=== PATIENT | female | born 1995 | race Caucasian/White ===

== ENCOUNTER 2019-08-17 08:30 | Outpatient (CLI) | payer OTHER ==
[2019-08-17 10:12] LABS: HGB - HEMOGLOBIN 10.6 g/dL (12.0-16.0); MEAN CORPUSCULAR HEMOGLOBIN 29.4 pg (27.0-31.0); MEAN CORPUSCULAR HGB CONC 31.5 g/dL (32.0-36.0); MEAN CORPUSCULAR VOLUME 93.3 fL (81.0-99.0); MEAN PLATELET VOLUME 10.3 fL (7.9-10.8); RED BLOOD COUNT 3.6 10^6/uL (4.20-5.40); WHITE BLOOD COUNT 10.6 x10^3/uL (4.8-10.8)
== END 2019-08-17 08:31 | disposition home or self-care (01) ==
LOC: LAB 08:30
PROVIDERS: ATTEND Advanced Practice Midwife
DX: Z34.90 Encounter for supervision of normal pregnancy, unspecified, unspecified trimester (principal)
CPT/HCPCS: 36415; 82950; 85027

== ENCOUNTER 2019-10-15 07:00 | Outpatient (CLI) | payer OTHER ==
[2019-10-15 20:02] LABS: TRICHOMONAS VAGINALIS DNA NEGATIVE (NEGATIVE)
== END 2019-10-15 23:59 | disposition home or self-care (01) ==
LOC: LAB.R 07:00
PROVIDERS: ATTEND Advanced Practice Midwife
DX: Z36.85 Encounter for antenatal screening for Streptococcus B (principal); Z11.3 Encounter for screening for infections with a predominantly sexual mode of transmission
CPT/HCPCS: 87491; 87591; 87661; 87797

== ENCOUNTER 2019-10-31 07:51 | Inpatient (IN) | payer OTHER ==
[2019-10-31 09:48] LABS: BASOPHILS % (AUTO) 0.3 %; EOSINOPHILS % (AUTO) 0.2 %; HGB - HEMOGLOBIN 11.1 g/dL (12.0-16.0); LYMPHOCYTES # (AUTO) 1.4 10^3/uL (1.5-3.5); LYMPHOCYTES % (AUTO) 11.8 %; MEAN CORPUSCULAR HEMOGLOBIN 27.2 pg (27.0-31.0); MEAN CORPUSCULAR HGB CONC 31.4 g/dL (32.0-36.0); MEAN CORPUSCULAR VOLUME 86.5 fL (81.0-99.0); MEAN PLATELET VOLUME 12.4 fL (7.9-10.8); MONOCYTES # (AUTO) 0.4 10^3/uL (0.0-1.0); MONOCYTES % (AUTO) 3.5 %; NEUTROPHILS # (AUTO) 10.2 10^3/uL (1.5-6.6); NEUTROPHILS % (AUTO) 83.4 %; PLT - PLATELET COUNT 197 10^3/uL (130-450); RED BLOOD COUNT 4.08 10^6/uL (4.20-5.40); RED CELL DISTRIBUTION WIDTH 15.5 % (12.0-15.0); WHITE BLOOD COUNT 12.2 x10^3/uL (4.8-10.8)
[2019-10-31 09:54] LABS: URIC ACID 5.9 mg/dL (2.6-7.2)
[2019-10-31 09:56] LABS: CREATININE,URINE 274.8 mg/dL; PROTEIN/CREATININE RATIO,URINE 0.1 (<=0.2)
[2019-10-31 10:00] LABS: BILIRUBIN,URINE NEGATIVE (NEGATIVE); GLUCOSE, URINE (UA) NEGATIVE (NEGATIVE); KETONES,URINE (UA) NEGATIVE (NEGATIVE); LEUKOCYTE ESTERASE, URINE NEGATIVE (NEGATIVE); NITRITE,URINE NEGATIVE (NEGATIVE); OCCULT BLOOD,URINE NEGATIVE (NEGATIVE); PROTEIN,URINE NEGATIVE (NEGATIVE); UROBILINOGEN,URINE 0.2 (NORMAL) E.U./dL (NORMAL)
[2019-10-31 10:05] LABS: ALBUMIN 3.6 g/dL (3.2-5.5); BILIRUBIN,TOTAL 0.7 mg/dL (0.2-1.0); CALCIUM 9.4 mg/dL (8.5-10.3); CREATININE 0.7 mg/dL (0.4-1.0); TOTAL PROTEIN 7.1 g/dL (6.7-8.2)
[2019-10-31 10:06] LABS: BACTERIA,URINE None Seen /HPF (None Seen); CLARITY,URINE CLEAR (CLEAR); RBC,URINE None Seen /HPF (0-5); SQUAMOUS EPITHELIAL CELL,UR NONE SEEN (<= Few)
[2019-10-31] MEDS ORDERED: TRANEXAMIC ACID 1,000 MG in SODIUM CHLORIDE 0.9% 100ML 100 ML IV PRN (11:36)
[2019-10-31] MEDS ORDERED: OXYTOCIN 10 UNIT/ML VIAL IM PRN (11:36)
[2019-10-31] MEDS ORDERED: OXYTOCIN/SODIUM CHLORIDE 500 ML IV PRN (11:36)
[2019-10-31] MEDS ORDERED: LIDOCAINE-MPF 1% 30 ML VIAL ID PRN (11:36)
[2019-10-31] MEDS ORDERED: CARBOPROST TROMETHAMINE 250 MCG/ML AMP IM PRN (11:36)
[2019-10-31] MEDS ORDERED: miSOPROStoL 200 MCG TABLET BC PRN (11:36)
[2019-10-31] MEDS ORDERED: ONDANSETRON 4 MG/2 ML VIAL IVP PRN ×2 (11:36→16:53)
[2019-10-31] MEDS ORDERED: SODIUM CHLORIDE FLUSH 0.9% 10 ML SYRINGE IVP PRN (11:36)
[2019-10-31] MEDS ORDERED: METHYLERGONOVINE 0.2 MG/ML VIAL IM PRN (11:36)
--- NOTE | 2019-10-31 11:49 | HISTORY & PHYSICAL EXAMINATION ---
Admit History - Visit Reason Visit Reason: Contractions - : 2 Parity: 0 Premature: 0 Ectopic: 0 : 1 Care: positive: [facility] Risk/History: positive: None Complications This : positive: None - Mother's Labs Mother's Blood Type: positive: O Mother's RH: positive: Positive GBS: positive: Group B Step Negative Rubella Status: positive: Immune Review of Systems - Constitutional Constitutional: denies: Fatigue, Fever, Chills, Malaise - Eyes Eyes: denies: Pain, Blurred vision, Spots in vision, Dipolpia - Cardiovascular Cariovascular: denies: Chest pain, Edema - Respiratory Respiratory: denies: Cough, SOB at rest - Gastrointestinal Gastrointestinal: denies: Abdominal pain, Constipation, Diarrhea, Change in bowel habits - Musculoskeletal Musculoskeletal: denies: Back pain, Muscle aches - Integumentary Integumentary: denies: Rash, Pruritis - Neurological Neurological: denies: Headache, Dizziness - Psychiatric Psychiatric: denies: Depression, Anxiety Physical - Abdominal Exam Vital Signs: Temp Pulse Resp BP Pulse Ox 37.0 C 78 16 143/88 H 10/31/19 08:11 10/31/19 08:11 10/31/19 08:11 10/31/19 08:11 Contraction Frequency (min/apart): 5-6 Contraction Intensity: positive: Moderate Uterine Resting Tone: positive: Soft - Monitoring Heart Rate Baseline: 130 Strip Review: positive: Category I - Presentation Presentation: positive: Vertex - Vaginal Exam Membranes: positive: Membranes intact Dilation (in cm): 4 Effacement (%): 90 Station: positive: -1 Cervical Position: positive: Posterior - Speculum Exam Speculum Exam Performed: positive: No Findings: positive: Other - Other Notes Labor Progress Note/Additional Text: HPI: This 24yo @ 39.1 wks gestation presents to [facility] with c/o contractions that started yesterday afternoon and became regular in frequency at approximately 1200 yesterday. She states she slept very little throughout the night due to uncomfortable contractions. She denies vaginal bleeding or leakage of fluid. She reports +FM. She has been a patient of [facility] since 27wks gestation when she transferred care from practice in [place]. She has had an uncomplicated thus far. Upon arrival her BP was noted to be slightly elevated from her normal baseline 130s/80s - 140s/80s. She denies headache, visual disturbances, RUQ or epigastic pain. Bilateral LE's trace edema. Upon arrival her cervix was noted to be 2/80/-2, posterior, vertex. She was monitoring x 1.5 hours and repeat SVE 4/90/- 1, posterior, vertex. She will be admitted to [facility] for expectant management. Dating criteria: LMP: 01/30/2019 Initial ultrasound: @ 6.5wks c/w LMP dating Serial Exams - agree OB Hx: G1: 09/2018 SAB @ 6wks G2: current Medications: PNV Allergies: NKDA PMHx: no significant Surgical Hx: [place] teeth removal Social Hx: Never smoker. no ETOH of IVDA. Partner Micah - active duty. Family Hx: No significant course: Initial U/S: at 6.5wks c/w LMP for MARISOL 11/06/2019 O pos/Rubella immune Gentic testing: harmony- neg FAS: 19w. WNL. 3VC. JUNO wnl. Glucola: early glucola: 115 TDAP: 08/12/2019 GBS & GC/CT at 36.6 weeks - neg/neg HSV: denies self and partner Breast pump Rx : given 08/12/2019 MOD: . FOB: Micah. baby BOY: Simone. Desires NCB pp contraception: Nexplanon. (Got within week of Nexplanon placement, had removed) PAP: 03/31/2019- neg Physical Exam: Normocephalic, atraumatic Heart RRR w/o M/G/R Lungs CTAB Abdomen gravid, soft, nontender EFW 3200g FHR baseline 145, moderate variability, + accels, no decels Contractions palpate moderate every 5-6 minutes with soft resting tone SVE 4/90/-1, posterior, vertex Bilateral LE's no edema. DTRs 2+, no clonus Admission labs: PIH Panel - LFTs WNL PLT 197 Uric acid 5.9 Protein/creatinine ratio - 0.1 Urine negative protein Assessment: 24yo @ 39.1wks gestation by LMP c/w 6wk U/S Active labor GBS neg Mildly elevated BP on admission - PIH labs WNL, pt asymptomatic Plan: Admit to [facility] for expectant management Pt desires unmedicated vaginal delivery Intermittent monitoring Anticipate Reviewed plan of care with pt, partner, and labor RN at the bedside. They all verbalized understanding and agree to above plan. They deny further questions or concerns at this time.
[2019-10-31] MEDS ORDERED: LACTATED RINGERS 1,000 ML IV SCH (12:00)
[2019-10-31 13:08] LABS: BASOPHILS % (AUTO) 0.3 %; HGB - HEMOGLOBIN 10.9 g/dL (12.0-16.0); LYMPHOCYTES # (AUTO) 1.2 10^3/uL (1.5-3.5); LYMPHOCYTES % (AUTO) 9.1 %; MEAN CORPUSCULAR HEMOGLOBIN 26.5 pg (27.0-31.0); MEAN CORPUSCULAR HGB CONC 30.5 g/dL (32.0-36.0); MEAN CORPUSCULAR VOLUME 86.7 fL (81.0-99.0); MEAN PLATELET VOLUME 12.1 fL (7.9-10.8); MONOCYTES # (AUTO) 0.4 10^3/uL (0.0-1.0); MONOCYTES % (AUTO) 3.1 %; NEUTROPHILS # (AUTO) 11.8 10^3/uL (1.5-6.6); NEUTROPHILS % (AUTO) 86.9 %; PLT - PLATELET COUNT 196 10^3/uL (130-450); RED BLOOD COUNT 4.12 10^6/uL (4.20-5.40); RED CELL DISTRIBUTION WIDTH 15.6 % (12.0-15.0); WHITE BLOOD COUNT 13.6 x10^3/uL (4.8-10.8)
--- NOTE | 2019-10-31 16:06 | PROVIDER PROGRESS NOTE ---
Labor Progress Note - Uterine Monitoring Uterine Monitoring Mode: positive: External toco Contraction Frequency (min/apart): 2-4 Contraction Intensity: positive: Moderate to strong Uterine Resting Tone: positive: Soft - Monitoring Monitor Mode: positive: External ultrasound Heart Rate Baseline: 140 Heart Rate Variability: positive: Moderate (6-25 bmp) Accelerations: positive: Present, 15x15 Decelerations: positive: None Strip Review: positive: Category I - Vaginal Exam Dilation (in cm): 5 Effacement (%): 100 Station: -1 Cervical Position: Posterior - Labor Progress Note Labor Progress Note/Additional Text: S: Breathing through contractions. Requesting epidural. Partner supportive at the bedside. O: BP 134/84 FHR pattern 130 baseline, moderate variability, + accels, no decels SVE 5/100/-1, posterior, soft, vertex A: 24yo @ 39.1wks gestation Active labor GBS neg FHR Category I P: Continuous monitoring Epidural per maternal request. Continue expectant management. Consider AROM with next SVE.
[2019-10-31] MEDS ORDERED: ROPIVACAINE 0.2% 200 MG/100 ML BAG EP ONE (16:09)
--- NOTE | 2019-10-31 16:48 | ANESTHESIA ---
Pre-Anesthesia VS, & Labs - Diagnosis undelivered - Procedure Vital Signs: Temp Pulse Resp BP Pulse Ox 37.0 C 78 16 143/88 H 10/31/19 12:09 10/31/19 08:11 10/31/19 08:11 10/31/19 08:11 Height 5 ft 2 in Weight (kg) 88.904 kg - Is Patient ?: Yes - Lab Results Current Lab Results: Laboratory Tests 10/31/19 12:35: WBC 13.6 H, RBC 4.12 L, Hgb 10.9 L, Hct 35.7 L, MCV 86.7, MCH 26.5 L, MCHC 30.5 L, RDW 15.6 H, Plt Count 196, MPV 12.1 H, Neut # (Auto) 11.8 H , Lymph # (Auto) 1.2 L, [place] # (Auto) 0.4, Eos # (Auto) 0.0, Baso # (Auto) 0.0, Absolute Nucleated RBC 0.00, Nucleated RBC % 0.0 10/31/19 09:30: Sodium 137, Potassium 3.9, Chloride 105, Carbon Dioxide 21, Anion Gap 11.0, BUN 12, Creatinine 0.7, Estimated GFR (MDRD) 105, Glucose 86, Calcium 9.4, Total Bilirubin 0.7, AST 18, ALT 19, Alkaline Phosphatase 164 H, Total Protein 7.1, Albumin 3.6, Globulin 3.5, Albumin/Globulin Ratio 1.0 10/31/19 09:30: Uric Acid 5.9, AST 20 10/31/19 09:30: WBC 12.2 H, RBC 4.08 L, Hgb 11.1 L, Hct 35.3 L, MCV 86.5, MCH 27.2, MCHC 31.4 L, RDW 15.5 H, Plt Count 197, MPV 12.4 H, Neut # (Auto) 10.2 H, Lymph # (Auto) 1.4 L, [place] # (Auto) 0.4, Eos # (Auto) 0.0, Baso # (Auto) 0.0, Absolute Nucleated RBC 0.00, Nucleated RBC % 0.0 10/31/19 09:30: Lactate Dehydrogenase 123 Fish Bones: 10/31/19 12:35 10/31/19 09:30 Home Medications and Allergies Active Medications Carboprost Tromethamine (Hemabate) 250 mcg IM Q15M PRN PRN Reason: Step 4: Hemorrhage protocol Stop: 11/05/19 11:37 Lactated Ringer's (Lr) 1,000 mls @ 150 mls/hr IV .Q6H40M [facility] Last Admin: 10/31/19 15:45 Dose: 150 mls/hr Documented by: Oxytocin/Sodium Chloride (Pitocin/Sodium Chloride) 500 mls @ 999 mls/hr IV PRN PRN; Protocol PRN Reason: POST- HEMORR PREVENTION Stop: 11/05/19 11:37 Tranexamic Acid 1,000 mg/ (Sodium Chloride) 110 mls @ 660 mls/hr IV .ONCE PRN PRN Reason: EBL >1200mL and within 3hr Stop: 11/05/19 11:37 Lidocaine HCl (Xylocaine-Mpf 1% Vial) 30 ml ID .ONCE PRN PRN Reason: PERINEAL REPAIR Stop: 11/05/19 11:37 Methylergonovine Maleate (Methergine Inj) 0.2 mg IM .ONCE PRN PRN Reason: Step 2: Hemorrhage protocol Stop: 11/05/19 11:37 Misoprostol (Cytotec) 800 mcg BC .ONCE PRN PRN Reason: Step 3: Hemorrhage protocol Stop: 11/05/19 11:37 Ondansetron HCl (Zofran Inj) 4 mg IVP Q4H PRN PRN Reason: Nausea / Vomiting Oxytocin (Pitocin) 10 unit IM .ONCE PRN PRN Reason: Step one: If no IV access Stop: 11/05/19 11:37 Sodium Chloride (Normal Saline Flush 0.9%) 10 ml IVP PRN PRN PRN Reason: NEEDED PER PROVIDER ORDERS Sodium Chloride (Normal Saline Flush 0.9%) 10 ml IVP 0100,0900,1700 [facility] Anes History & Medical History - Anesthetic History Anesthesia Complications: reports: No previous complications Family history of Anesthesia Complications: Denies Family history of Malignant Hyperthermia: Denies - Medical History Cardiovascular: reports: None Pulmonary: reports: None Musculoskeletal: reports: None Smoking Status: Never smoker - Obstetrical History : 2 Parity: 0 Events: positive: None Complications: positive: None Exam General: Alert Dental: WNL Mouth Opening: Greater than 4 Fingerbreadths Neck Mobility: Normal Mallampati classification: II Thyromental Distance: 4-6 cm Respiratory: Lungs clear, Normal breath sounds, No respiratory distress, No ac cessory muscle use Cardiovascular: Regular rate, Normal S1, Normal S2, No murmurs Mental/Cognitive Status: Alert/Oriented X3, Normal for patient Cognitive Status: Within normal limits Plan Anesthesia Type: Epidural Consent for Procedure(s) Verified and Reviewed: Yes Code Status: Attempt Resuscitation ASA classification: 1-Healthy patient Is this case an emergency?: No
[2019-10-31] MEDS ORDERED: NALBUPHINE 10 MG/ML AMP IVP PRN (16:53)
[2019-10-31] MEDS ORDERED: METOCLOPRAMIDE 10 MG/2 ML VIAL IVP PRN (16:53)
[2019-10-31] MEDS ORDERED: ePHEDrine 50 MG/ML VIAL IVP PRN (16:53)
[2019-10-31] MEDS ORDERED: NALOXONE 0.4 MG/ML VIAL IVP PRN (16:53)
[2019-10-31] MEDS ORDERED: ROPIVACAINE 0.2% 200 MG/100 ML BAG EP PRN (16:53)
[2019-10-31] MEDS ORDERED: diphenhydrAMINE INJ 50 MG/ML VIAL IVP PRN (16:53)
[2019-10-31] MEDS ORDERED: SODIUM CHLORIDE FLUSH 0.9% 10 ML SYRINGE IVP SCH (17:00)
[2019-10-31] MEDS ORDERED: WITCH HAZEL/GLYCERIN 1 PAD TOP PRN (20:10)
[2019-10-31] MEDS ORDERED: HYDROCORTISONE 1% CREAM 28 GM TUBE PR PRN (20:10)
--- NOTE | 2019-10-31 20:24 | DELIVERY NOTE ---
Delivery Note - Labor Labor: positive: Spontaneous - Delivery Method Delivery Method: positive: Spontaneous vaginal delivery - Cervical Ripening Method Cervical Ripening Method: positive: Balloon device - Presentation Presentation: positive: Vertex - Nuchal Cord Nuchal Cord: positive: None - Amniotic Fluid Description Amniotic Fluid Description: positive: Clear - Episiotomy Type Episiotomy Type: positive: None - Laceration Laceration: positive: 1st degree, Labial, Vaginal - Suture Suture Type: positive: Vicryl Suture Size: positive: 3-0, 4-0 - Delivery Outcome Delivery Outcome: positive: Livebirth - [place]: positive: Placed in direct skin contact with mother, Stimulated, Warmed, [place] used sex: positive: Male - Cord Cord: positive: 3 vessels - Placenta Placenta: positive: Intact, Spontaneous - Estimated Blood Loss Estimated Blood Loss (in cc): 350 - Post Delivery Events Post Delivery Events: positive: No post delivery events - Delivery Comments (Free Text/Narrative) Delivery Comments (Free Text/Narrative): Labor: This 24yo @ 39.1wks gestation by LMP c/w first trimester ultrasound presented on 10/31/2019 at approximately 0930 with complaints of contractions. Upon arrival SVE 2/80/-2 and 1.5 hours later patient progressed to 4/90/-1, vertex. She wad admitted to [facility] for expectant management. She initially had slightly elevated BP (130-140s/70s-80s) and a PIH panel was ordered and WNL. She was asymptomatic and remained asymptomatic throughout labor. FHR pattern demonstrated Category I pattern. Epidural placed per maternal request. Normal labor course. Pt progressed to c/c at 1846. AROM occurred at 1848 and was noted to be a moderate amount of clear fluid. : Normal of viable male on 10/31/2019 @ 1822. No nuchal cord. The was stimulated, dried, and placed skin to skin. 's were 9/9 at 1 and 5 min respectively. The umbilical cord was allowed to stop pulsating at which time it was doubly clamped by CNM and cut by FOB. Pitocin administered via IV for hemostasis. Cord blood was obtained. Placenta delivered spontaneously and intact at 1827. The perineum, vagina, and cervix were inspected and found to have 1st degree labial laceration which was repaired using a 3-[address]- 1 needle, and a 1st degree right labial laceration which was repaired using a 3- [address]-1 needle and a 4-0 Vicryl on an SH needle, in standard fashion and under sterile conditions. Vaginal examination following repair was performed. Tissues well approximated. initiated. Family bonding well. Both mother and baby were left in stable condition.
[2019-11-01] MEDS: IBUPROFEN 800 MG TABLET PO SCH ×4 (02:20→23:00)
[2019-11-01] MEDS: ACETAMINOPHEN 500 MG TABLET PO SCH ×3 (06:00→22:59)
[2019-11-01] MEDS: DOCUSATE SODIUM 100 MG CAPSULE PO SCH ×2 (08:51→23:00)
--- NOTE | 2019-11-01 09:56 | PROVIDER PROGRESS NOTE ---
Subjective - Subjective Subjective: S: Bonding well with baby. without difficulty. Pain well controlled with oral medications. Feeling like she was able to get a little rest last night. Partner supportive at the bedside. O: BP 136/75, T 36.6, HR 73, RR 18 Heart RRR w/o M/G/R, lungs CTAB, abdomen soft and nontender with fundus firm at U. Bilateral LE's no edema. A: 24yo -->P1 PPD#1 s/p TSVD viable male infant P: Continue routine pp care and medications. Rapid HIV ordered per patient consent at the request of home office claims examiner. Evaluate for discharge home tomorrow. Objective - Vital Signs/Intake & Output Vital Signs: Vital Signs x48h Temp Pulse Resp BP BP Pulse Ox 11/01/19 08:54 36.6 C 73 18 136/75 H 99 11/01/19 06:00 37.4 C 70 18 132/94 H 11/01/19 02:30 37.2 C Intake & Output: Intake & Output 10/29/19 10/30/19 10/31/19 11/01/19 23:59 23:59 23:59 23:59 Output Total 800 Balance -800 - Lab Results Fish Bones: 10/31/19 12:35 10/31/19 09:30 Other Labs: Lab Results x24hrs 10/31/19 10/31/19 10/31/19 Range/Units 12:35 09:30 09:30 WBC 13.6 H (4.8-10.8) x10^3/uL RBC 4.12 L (4.20-5.40) 10^6/uL Hgb 10.9 L (12.0-16.0) g/dL Hct 35.7 L (37.0-47.0) % MCV 86.7 (81.0-99.0) fL MCH 26.5 L (27.0-31.0) pg MCHC 30.5 L (32.0-36.0) g/dL RDW 15.6 H (12.0-15.0) % Plt Count 196 (130-450) 10^3/uL MPV 12.1 H (7.9-10.8) fL Neut # (Auto) 11.8 H (1.5-6.6) 10^3/uL Lymph # (Auto) 1.2 L (1.5-3.5) 10^3/uL [place] # (Auto) 0.4 (0.0-1.0) 10^3/uL Eos # (Auto) 0.0 (0.0-0.7) 10^3/uL Baso # (Auto) 0.0 (0.0-0.1) 10^3/uL Absolute Nucleated RBC 0.00 x10^3/uL Nucleated RBC % 0.0 /100WBC Sodium 137 (135-145) mmol/L Potassium 3.9 (3.5-5.0) mmol/L Chloride 105 (101-111) mmol/L Carbon Dioxide 21 (21-32) mmol/L Anion Gap 11.0 (6-13) BUN 12 (6-20) mg/dL Creatinine 0.7 (0.4-1.0) mg/dL Estimated GFR (MDRD) 105 (>89) Glucose 86 (70-100) mg/dL Uric Acid 5.9 (2.6-7.2) mg/dL Calcium 9.4 (8.5-10.3) mg/dL Total Bilirubin 0.7 (0.2-1.0) mg/dL AST 18 20 (10-42) IU/L ALT 19 (10-60) IU/L Alkaline Phosphatase 164 H (42-121) IU/L Lactate Dehydrogenase (91-225) IU/L Total Protein 7.1 (6.7-8.2) g/dL Albumin 3.6 (3.2-5.5) g/dL Globulin 3.5 (2.1-4.2) g/dL Albumin/Globulin Ratio 1.0 (1.0-2.2) Urine Color Urine Clarity (CLEAR) Urine pH (5.0-7.5) PH Ur Specific Jones (1.002-1.030) Urine Protein (NEGATIVE) mg/dL Urine Glucose (UA) (NEGATIVE) mg/dL Urine Ketones (NEGATIVE) mg/dL Urine Occult Blood (NEGATIVE) Urine Nitrite (NEGATIVE) Urine Bilirubin (NEGATIVE) Urine Urobilinogen (NORMAL) E.U./dL Ur Leukocyte Esterase (NEGATIVE) Urine RBC (0-5) /HPF Urine WBC (0-5) /HPF Ur Squamous Epith Cells (<= Few) Urine Bacteria (None Seen) /HPF Urine Culture Comments Urine Creatinine mg/dL Ur Total Protein Timed mg/dL Protein/Creatinin Ratio (<=0.2) 10/31/19 10/31/19 10/31/19 Range/Units 09:30 09:30 09:20 WBC 12.2 H (4.8-10.8) x10^3/uL RBC 4.08 L (4.20-5.40) 10^6/uL Hgb 11.1 L (12.0-16.0) g/dL Hct 35.3 L (37.0-47.0) % MCV 86.5 (81.0-99.0) fL MCH 27.2 (27.0-31.0) pg MCHC 31.4 L (32.0-36.0) g/dL RDW 15.5 H (12.0-15.0) % Plt Count 197 (130-450) 10^3/uL MPV 12.4 H (7.9-10.8) fL Neut # (Auto) 10.2 H (1.5-6.6) 10^3/uL Lymph # (Auto) 1.4 L (1.5-3.5) 10^3/uL [place] # (Auto) 0.4 (0.0-1.0) 10^3/uL Eos # (Auto) 0.0 (0.0-0.7) 10^3/uL Baso # (Auto) 0.0 (0.0-0.1) 10^3/uL Absolute Nucleated RBC 0.00 x10^3/uL Nucleated RBC % 0.0 /100WBC Sodium (135-145) mmol/L Potassium (3.5-5.0) mmol/L Chloride (101-111) mmol/L Carbon Dioxide (21-32) mmol/L Anion Gap (6-13) BUN (6-20) mg/dL Creatinine (0.4-1.0) mg/dL Estimated GFR (MDRD) (>89) Glucose (70-100) mg/dL Uric Acid (2.6-7.2) mg/dL Calcium (8.5-10.3) mg/dL Total Bilirubin (0.2-1.0) mg/dL AST (10-42) IU/L ALT (10-60) IU/L Alkaline Phosphatase (42-121) IU/L Lactate Dehydrogenase 123 (91-225) IU/L Total Protein (6.7-8.2) g/dL Albumin (3.2-5.5) g/dL Globulin (2.1-4.2) g/dL Albumin/Globulin Ratio (1.0-2.2) Urine Color Urine Clarity (CLEAR) Urine pH (5.0-7.5) PH Ur Specific [place] (1.002-1.030) Urine Protein (NEGATIVE) mg/dL Urine Glucose (UA) (NEGATIVE) mg/dL Urine Ketones (NEGATIVE) mg/dL Urine Occult Blood (NEGATIVE) Urine Nitrite (NEGATIVE) Urine Bilirubin (NEGATIVE) Urine Urobilinogen (NORMAL) E.U./dL Ur Leukocyte Esterase (NEGATIVE) Urine RBC (0-5) /HPF Urine WBC (0-5) /HPF Ur Squamous Epith Cells (<= Few) Urine Bacteria (None Seen) /HPF Urine Culture Comments Urine Creatinine 274.8 mg/dL Ur Total Protein Timed 26 mg/dL Protein/Creatinin Ratio 0.1 (<=0.2) 10/31/19 Range/Units 09:20 WBC (4.8-10.8) x10^3/uL RBC (4.20-5.40) 10^6/uL Hgb (12.0-16.0) g/dL Hct (37.0-47.0) % MCV (81.0-99.0) fL MCH (27.0-31.0) pg MCHC (32.0-36.0) g/dL RDW (12.0-15.0) % Plt Count (130-450) 10^3/uL MPV (7.9-10.8) fL Neut # (Auto) (1.5-6.6) 10^3/uL Lymph # (Auto) (1.5-3.5) 10^3/uL [place] # (Auto) (0.0-1.0) 10^3/uL Eos # (Auto) (0.0-0.7) 10^3/uL Baso # (Auto) (0.0-0.1) 10^3/uL Absolute Nucleated RBC x10^3/uL Nucleated RBC % /100WBC Sodium (135-145) mmol/L Potassium (3.5-5.0) mmol/L Chloride (101-111) mmol/L Carbon Dioxide (21-32) mmol/L Anion Gap (6-13) BUN (6-20) mg/dL Creatinine (0.4-1.0) mg/dL Estimated GFR (MDRD) (>89) Glucose (70-100) mg/dL Uric Acid (2.6-7.2) mg/dL Calcium (8.5-10.3) mg/dL Total Bilirubin (0.2-1.0) mg/dL AST (10-42) IU/L ALT (10-60) IU/L Alkaline Phosphatase (42-121) IU/L Lactate Dehydrogenase (91-225) IU/L Total Protein (6.7-8.2) g/dL Albumin (3.2-5.5) g/dL Globulin (2.1-4.2) g/dL Albumin/Globulin Ratio (1.0-2.2) Urine Color YELLOW Urine Clarity CLEAR (CLEAR) Urine pH 7.0 (5.0-7.5) PH Ur Specific [place] 1.025 (1.002-1.030) Urine Protein NEGATIVE (NEGATIVE) mg/dL Urine Glucose (UA) NEGATIVE (NEGATIVE) mg/dL Urine Ketones NEGATIVE (NEGATIVE) mg/dL Urine Occult Blood NEGATIVE (NEGATIVE) Urine Nitrite NEGATIVE (NEGATIVE) Urine Bilirubin NEGATIVE (NEGATIVE) Urine Urobilinogen 0.2 (NORMAL) (NORMAL) E.U./dL Ur Leukocyte Esterase NEGATIVE (NEGATIVE) Urine RBC None Seen (0-5) /HPF Urine WBC 0-3 (0-5) /HPF Ur Squamous Epith Cells NONE SEEN (<= Few) Urine Bacteria None Seen (None Seen) /HPF Urine Culture Comments NOT INDICATED Urine Creatinine mg/dL Ur Total Protein Timed mg/dL Protein/Creatinin Ratio (<=0.2)
[2019-11-01 10:13] LABS: HIV RAPID SCREEN NEGATIVE (NEGATIVE)
[2019-11-02] MEDS: IBUPROFEN 800 MG TABLET PO SCH (05:08)
[2019-11-02] MEDS: ACETAMINOPHEN 500 MG TABLET PO SCH (06:53)
--- NOTE | 2019-11-02 07:49 | PROVIDER PROGRESS NOTE ---
Subjective - Prog Note Date Prog Note Date: 11/02/19 Prog Note Time: 07:49 - Subjective Pt reports feeling: Improved Subjective: FINAL PROGRESS NOTE S: Bonding well with baby. without difficulty. Pain well controlled with oral medications. Partner supportive at the bedside. O: BP 133/77, T 36.8, HR 78, RR 18, O2 sat 100% Fundus firm. Bilateral LE's no edema. A: 24yo -->P1 PPD#2 s/p TSVD viable male infant P: Continue routine pp care and medications. Evaluate for discharge home today. Objective - Vital Signs/Intake & Output Vital Signs: Vital Signs x48h Temp Pulse Resp BP Pulse Ox 11/02/19 04:13 36.8 C 78 18 133/77 H 100 Intake & Output: Intake & Output 10/30/19 10/31/19 11/01/19 11/02/19 23:59 23:59 23:59 23:59 Output Total 800 Balance -800 - Lab Results Fish Bones: 10/31/19 12:35 10/31/19 09:30 Other Labs: Lab Results x24hrs 10/31/19 Range/Units 12:35 HIV 1&2 Antibody Rapid NEGATIVE (NEGATIVE)
--- NOTE | 2019-11-02 08:01 | DISCHARGE SUMMARY ---
Discharge Summary - HPI History of Present Illness: Admit Date 10/31/2019 Discharge Date 11/02/2019 Diagnosis on Admission: 1. A 24yo at 39.1 week intrauterine 2. Early Active Labor Diagnosis on Discharge 1. A 24yo s/p spontaneous vaginal delivery on 10/31/2019 2. Normal recovery Brief History: She is a patient at [facility] who presented on 10/31/2019 with complaints of contractions. The patient was found to contract every 1 to 5 minutes and her cervix was 2cm dilated, 80%effaced, and -2 station, she quickly progressed to 4/90%/-1. She progressed physiologically and spontaneously delivered a viable male infant. Apgars were 9 and 9- and 1 and 5 minutes r espectively. EBL 350mL. The patient had bilateral first degree labial lacerations that was repaired with 3-0 vicryl and 4-0 vicryl in usual fashion under sterile conditions. She has been doing well in her course. She is ambulating and tolerating a regular diet. She is urinating without difficulty and her lochia is normal. Her pain is well controlled with oral medications. She will be discharged home today on day #2 without need for prescriptions. She intends to follow up with Midwifery at [facility] in 1, 3, and 6 weeks for routine visit. She has been given precautions to call if she has any worsening fevers, chills, abdominal pain, increased bleeding or foul smelling vaginal lochia. - ALLERGIES Allergies/Adverse Reactions: Allergies Allergy/AdvReac Type Severity Reaction Status Date / Time No Known Drug Allergies Allergy Verified 11/01/19 01:09 - LABS Result Diagrams: 10/31/19 12:35 10/31/19 09:30
[2019-11-02 09:11] VITALS: BP 127/86
[2019-11-02] MEDS: DOCUSATE SODIUM 100 MG CAPSULE PO SCH (10:13)
--- NOTE | 2019-11-02 10:17 | Discharge Plan ---
Discharge Plan Problem Reviewed?: Yes Disposition: Home, Self Care Condition: Good Diet: Regular Plan of Treatment: Please follow up at 1, 3, and 6 weeks No Smoking: If you smoke, Please STOP! Call for help. Follow-up with: Julia Gonzáles ARNP [Provider Admit Priv/Credential] -
--- NOTE | 2019-11-02 12:35 | Labor Flowsheet ---
Labor Flowsheet Datetime Report Generated by CPN: 11/02/2019 12:35 Datetime: 10/31/2019 22:16 VITAL SIGNS NBP Sys/Kirsten/Mean (mmHg): 125 : 94 : 101 Pulse: 130 Datetime: 10/31/2019 22:01 Stage of : Recovery Datetime: 10/31/2019 21:46 Temperature (C): 37.1 Temperature Route: Oral PAIN Pain Scale: 0 Pain Presence: Intermittent Pain Type: Cramping Datetime: 10/31/2019 21:30 MEDICATIONS Pitocin (milliunits): Discontinued Datetime: 10/31/2019 19:30 SpO2 (%): 100 Datetime: 10/31/2019 19:29 Anesthesia Comments: pump stopped Datetime: 10/31/2019 19:22 UTERINE ACTIVITY Monitor Mode: External Monitor Interventions for UA: [place] Adjusted Frequency (min): 1.5-3.5 Quality: Strong Duration (sec): 50-100 Pattern: Normal: <= 5 Contractions in 10 Minutes Resting Tone (Palpate): Relaxed ASSESSMENT A Monitor Mode: External US Monitor Interventions for FHR: Ultrasound Adjusted FHR Baseline Rate : 135 FHR Baseline Changes: No Baseline Change Variability: Moderate 6-25 bpm Accelerations: 15X15 Decelerations: Variable Category: Category I Comments: Imminent Medication Comments: pit started Datetime: 10/31/2019 19:20 LaborFlag: Labor Datetime: 10/31/2019 19:06 Membranes Ruptured Date/Time: 10/31/2019 18:48 Amniotic Fluid Odor: Normal Datetime: 10/31/2019 19:02 COMMUNICATION Communication Comments: Report given to [facility] RN Datetime: 10/31/2019 18:58 Membranes Rupture Method: Artificial Amniotic Fluid Color: Clear Amniotic Fluid Amount: Large Datetime: 10/31/2019 18:46 VAGINAL EXAM Dilatation (cm): 10.0 Effacement (%): 100 Station: 1 Exam by: K Rodriguez RNC Datetime: 10/31/2019 18:30 Contraction Comments: ctx not tracing well due to maternal side lying position Datetime: 10/31/2019 18:21 Patient Position/Activity: Right Lateral Datetime: 10/31/2019 17:01 Patient Care Comments: O2 off Datetime: 10/31/2019 16:30 Epidural Procedure Other: Pump Started Datetime: 10/31/2019 16:18 Epidural Procedure: Test Dose Datetime: 10/31/2019 16:07 PROCEDURE TIME OUT Procedure Verify: Correct Patient Identity; Correct Side and Site are Marked; Accurate Procedure Co nsent Form; Agreement on Procedure to be Done; Correct Patient Position; Relevant Images and Results are Properly Labeled and Displayed; Addressed Need to Administer Antibiotics or Fluids for Irrigation ; Safety Precautions Based on Patient History or Medication Use ANESTHESIA Anesthesia Plans: Epidural Epidural Positioning: Sitting Datetime: 10/31/2019 15:51 I/O Interventions: Up to BR Datetime: 10/31/2019 15:38 Pain Coping: Requesting Pain Medication or Epidural Pain Assessment Comments: anesthesia contacted for epidural start Datetime: 10/31/2019 15:32 Cervix, Position: Posterior Datetime: 10/31/2019 15:30 PATIENT CARE IV/Blood Work: IV Started Datetime: 10/31/2019 15:00 Pain Relief Measures: Comfort Measures Membrane Status: Intact Oxygen Method: Room Air Datetime: 10/31/2019 14:00 TEACHING Unit Routine: [place] to Room; Call Mc; Bed; Monitoring
[2019-11-02 12:41] LABS: HIV AG/AB 4TH GEN NON-REACTIVE (NON-REACTIVE)
== END 2019-11-02 11:15 | disposition home or self-care (01) | DRG 807 ==
LOC: WFO 07:51 → FBP 07:54 → WFO 11:35 → FBP 11:36
PROVIDERS: ADMIT Nurse Practitioner Obstetrics & Gynecology; ATTEND Advanced Practice Midwife
PROC: 10E0XZZ Delivery of Products of Conception, External Approach (ICD-10-PCS; principal; 2019-10-31)
PROC: 10907ZC Drainage of Amniotic Fluid, Therapeutic from Products of Conception, Via Natural or Artificial Opening (ICD-10-PCS; 2019-10-31)
PROC: 0HQ9XZZ Repair Perineum Skin, External Approach (ICD-10-PCS; 2019-10-31)
DX: O13.4 Gestational [pregnancy-induced] hypertension without significant proteinuria, complicating childbirth (principal); Z37.0 Single live birth; O70.0 First degree perineal laceration during delivery; Z3A.39 39 weeks gestation of pregnancy
CPT/HCPCS: 36415; 80053; 81001; 82570; 83615; 84156; 84450; 84550; 85025; 86703; 87389; 99213; A9270; J7120; 87086

== ENCOUNTER 2019-11-06 09:01 | Outpatient (CLI) | payer OTHER | END 2019-11-06 10:30 | disposition home or self-care (01) | LOC: WFO 09:01 → FBP 09:03 → WFO 10:30 | PROVIDERS: ATTEND Pediatrics | DX: Z39.1 Encounter for care and examination of lactating mother (principal); R03.0 Elevated blood-pressure reading, without diagnosis of hypertension | CPT/HCPCS: 36415; 80053; 85027; 99404 ==

== ENCOUNTER 2019-11-06 12:43 | Outpatient (CLI) | payer OTHER ==
[2019-11-06 12:57] LABS: HGB - HEMOGLOBIN 10.9 g/dL (12.0-16.0); MEAN CORPUSCULAR HEMOGLOBIN 26.7 pg (27.0-31.0); MEAN CORPUSCULAR HGB CONC 29.9 g/dL (32.0-36.0); MEAN PLATELET VOLUME 11.1 fL (7.9-10.8); RED BLOOD COUNT 4.09 10^6/uL (4.20-5.40); RED CELL DISTRIBUTION WIDTH 16.5 % (12.0-15.0); WHITE BLOOD COUNT 13.2 x10^3/uL (4.8-10.8)
[2019-11-06 13:14] LABS: ALBUMIN 3.6 g/dL (3.2-5.5); BILIRUBIN,TOTAL 0.9 mg/dL (0.2-1.0); CALCIUM 9.1 mg/dL (8.5-10.3); CREATININE 0.7 mg/dL (0.4-1.0); TOTAL PROTEIN 7.3 g/dL (6.7-8.2)
== END 2019-11-06 12:44 | disposition home or self-care (01) ==
LOC: LAB 12:43
PROVIDERS: ATTEND Nurse Practitioner Obstetrics & Gynecology
DX: R03.0 Elevated blood-pressure reading, without diagnosis of hypertension (principal)
CPT/HCPCS: 36415; 80053; 85027

== ENCOUNTER 2019-11-10 11:38 | Outpatient (CLI) | payer OTHER ==
[2019-11-10 12:05] LABS: HGB - HEMOGLOBIN 10.6 g/dL (12.0-16.0); MEAN CORPUSCULAR HEMOGLOBIN 25.8 pg (27.0-31.0); MEAN CORPUSCULAR HGB CONC 29.3 g/dL (32.0-36.0); MEAN CORPUSCULAR VOLUME 88.1 fL (81.0-99.0); MEAN PLATELET VOLUME 9.3 fL (7.9-10.8); RED BLOOD COUNT 4.11 10^6/uL (4.20-5.40); RED CELL DISTRIBUTION WIDTH 16.6 % (12.0-15.0); WHITE BLOOD COUNT 7.3 x10^3/uL (4.8-10.8)
[2019-11-10 12:17] LABS: ALBUMIN 3.6 g/dL (3.2-5.5); ALBUMIN/GLOBULIN RATIO 1.1 (1.0-2.2); BILIRUBIN,TOTAL 0.5 mg/dL (0.2-1.0); CALCIUM 8.9 mg/dL (8.5-10.3); CREATININE 0.7 mg/dL (0.4-1.0)
[2019-11-10 12:18] LABS: CREATININE,URINE 124.6 mg/dL; PROTEIN/CREATININE RATIO,URINE 0.1 (<=0.2)
== END 2019-11-10 11:39 | disposition home or self-care (01) ==
LOC: LAB 11:38
PROVIDERS: ATTEND Nurse Practitioner Obstetrics & Gynecology
DX: R03.0 Elevated blood-pressure reading, without diagnosis of hypertension (principal)
CPT/HCPCS: 36415; 80053; 82570; 84156; 85027

== ENCOUNTER 2019-12-05 06:12 | Emergency (ER) | payer OTHER ==
--- NOTE | 2019-12-05 06:39 | ED Physician Documentation ---
History of Present Illness - Stated complaint Stated Complaint: ALLERGIC REACTION - Chief complaint Chief Complaint: Allergic Rx - History obtained from History obtained from: Patient - History of Present Illness Timing: Enter time (22:00), Last night Pain level max: 0 Pain level now: 0 Improved by: nothing Worsened by: no inciting nor exacerbating factors - Additonal information Additional information: c/o generalized pruritic rash since 10 PM last night, gradual onset and subsequently developed swelling of both hands and bilateral periorbital swelling, which improved prior to this evaluation. Denies dyspnea, wheezing, perioral/intraoral swelling. No apparent trigger such as new mediation or new soap/detergent, denies h/o similar symptoms Review of Systems Respiratory: denies: Dyspnea, Cough, Wheezing Skin: reports: Rash Musculoskeletal: reports: Extremity swelling (bilateral hands) PD PAST MEDICAL HISTORY - Past Medical History Cardiovascular: None Respiratory: None Musculoskeletal: None - Present Medications Home Medications: Ambulatory Orders Medication Instructions Recorded Confirmed Loratadine [Claritin] 10 mg PO DAILY PRN #10 tablet 12/05/19 predniSONE [Prednisone] 40 mg PO DAILY 3 Days #6 tablet 12/05/19 - Allergies Allergies/Adverse Reactions: Allergies Allergy/AdvReac Type Severity Reaction Status Date / Time No Known Drug Allergies Allergy Verified 12/05/19 06:28 - Social History Smoking Status: Never smoker PD ED PE NORMAL - Vitals Vital signs reviewed: Yes - General General: Alert and oriented X 3, No acute distress, Well developed/nourished - HEENT HEENT: Pharynx benign (no perioral nor intraoral edema), Other (mild bilateral periorbital edema, R>L) - Respiratory Respiratory: No respiratory distress, Clear bilaterally PD ED PE EXPANDED - Derm Derm: Urticaria (scattered urticaria on mid/lower back and abdomen, face, and bilateral upper extremities with more concentrated hives on neck and upper back including areas of confluence) - Extremities Extremities: Other (mild edema bilateral hands) Results - Vitals Vitals: Vital Signs - 24 hr 12/05/19 12/05/19 06:15 06:56 Temperature 37.3 C Heart Rate 90 80 Respiratory 16 16 Rate Blood Pressure 128/89 H 118/62 O2 Saturation 99 99 Oxygen O2 Source Room air PD MEDICAL DECISION MAKING - ED course Complexity details: considered differential, d/w patient Departure - Departure Disposition: 01 Home, Self Care Clinical Impression: Allergic reaction Condition: Good Instructions: ED Allergic Reaction General Other Prescriptions: Loratadine [Claritin] 10 mg PO DAILY PRN #10 tablet PRN Reason: Itching predniSONE [Prednisone] 40 mg PO DAILY 3 Days #6 tablet Discharge Date/Time: 12/05/19 06:56
[2019-12-05] MEDS ORDERED: LORATADINE 10 MG TABLET PO STA (06:49)
[2019-12-05] MEDS ORDERED: predniSONE 20 MG TABLET PO STA (06:49)
[2019-12-05 06:57] VITALS: BP 118/62
== END 2019-12-05 06:56 | disposition home or self-care (01) ==
LOC: ED 06:12
DX: T78.40XA Allergy, unspecified, initial encounter (principal); X58.XXXA Exposure to other specified factors, initial encounter
CPT/HCPCS: 99282; 99283; A9270; J7512